=== PATIENT | male | born 1980 | race Caucasian/White ===

== ENCOUNTER 2017-08-12 13:28 | Outpatient (CLI) ==
[2012-10-24 19:55] VITALS: TEMP 97.8
[2013-12-05 00:08] VITALS: BMI 30.9
== END 2017-08-12 13:29 | disposition home or self-care (01) ==
LOC: LAB 13:28
PROVIDERS: ATTEND Family Medicine
DX: R10.9 Unspecified abdominal pain (principal)
CPT/HCPCS: 81001; 87086

== ENCOUNTER 2017-08-15 07:18 | Outpatient (CLI) ==
[2012-10-24 19:55] VITALS: TEMP 97.8
[2013-12-05 00:08] VITALS: BMI 30.9
--- NOTE | 2017-08-15 08:34 | US ---
Exam: Stephens-scale and color Doppler ultrasonographic evaluation of the kidneys and urinary bladder. Comparison: CT abdomen pelvis performed 06/14/2011. Reason for exam: Bilateral flank pain. FINDINGS: The right kidney measures approximately 13.27 x 4.63 x 5.64 cm without hydronephrosis or n ephrolithiasis. The left kidney measures approximately 12.33 x 5.87 x 4.79 cm without hydronephrosis or nephrolithias is. The bladder is incompletely evaluated secondary to non distension. Impression: 1. No acute ultrasonographic findings are seen in the in the right or left kidney. 2. The bladder is incompletely evaluated secondary to non distension.
== END 2017-08-15 07:19 | disposition home or self-care (01) ==
LOC: RAD 07:18
PROVIDERS: ATTEND Family Medicine
DX: R10.9 Unspecified abdominal pain (principal)
CPT/HCPCS: 76770